=== PATIENT | female | born 1975 | race Two or more races ===

== ENCOUNTER 2017-08-22 09:38 | Emergency (ER) | payer SELFPAY ==
[~2017-08-22] VITALS: Ht 154.9 cm; Wt 47.6 kg
--- NOTE | 2017-08-22 09:43 | PHYS DOC ---
Adult General Chief Complaint Chief Complaint: ABDOMINAL PAIN HPI HPI Patient is a 41 year old female with a history of cholecystectomy on 08/17/17 at [facility] presents to the ED complaining of abdominal pain at incision site x 2 days. Describes the pain as sharp and rates as 6/10. States she was feeling constipated on the toilet this morning and felt a little nauseous with abdominal pain after trying to have a stool. No prior surgeries. Denies fever, vomiting, chest pain, shortness of breath, weakness, headache, syncope. Review of Systems Review of Systems Constitutional: Denies fever or chills [] Eyes: Denies change in visual acuity, redness, or eye pain [] HENT: Denies nasal congestion or sore throat [] Respiratory: Denies cough or shortness of breath [] Cardiovascular: No additional information not addressed in HPI [] GI: Complains of abdominal pain. Denies nausea, vomiting, bloody stools or diarrhea [] : Denies dysuria or hematuria [] Musculoskeletal: Denies back pain or joint pain [] Integument: Denies rash or skin lesions [] Neurologic: Denies headache, focal weakness or sensory changes [] Endocrine: Denies polyuria or polydipsia [] Current Medications Current Medications Current Medications Medications (Trade) Dose Ordered Sig/Soraya Start Time Stop Time Status Last Admin Dose Admin Info (Do NOT chart on this entry -- for MONITORING) 1 each PRN DAILY PRN 08/22/17 11:45 08/22/17 13:35 DC Iohexol (Omnipaque 300 Mg/ml) 75 ml 1X ONCE 08/22/17 12:15 08/22/17 12:16 DC 08/22/17 11:52 75 ML Morphine Sulfate 2 mg 1X ONCE 08/22/17 11:45 08/22/17 11:46 DC 08/22/17 11:41 2 MG Allergies Allergies Allergies Coded Allergies Type Severity Reaction Last Updated Verified No Known Drug Allergies 08/22/17 No Physical Exam Physical Exam Constitutional: Well developed, well nourished, no acute distress, non-toxic appearance. [] HENT: Normocephalic, atraumatic, bilateral external ears normal, oropharynx moist, no oral exudates, nose normal. [] Eyes: PERRLA, EOMI, conjunctiva normal, no discharge. [] Neck: Normal range of motion, no tenderness, supple, no stridor. [] Cardiovascular:Heart rate regular rhythm, no murmur [] Lungs & Thorax: Bilateral breath sounds clear to auscultation [] Abdomen: Bowel sounds normal, soft, MILD TENDERNESS TO INCISION SITE. SUTURES AND STERI STRIPS INTACT. C/D/I. NO SIGNS OF INFECTION DRAINAGE OR DEHISCENCE. no masses, no pulsatile masses. [] Skin: Warm, dry, no erythema, no rash. [] Back: No tenderness, no CVA tenderness. [] Extremities: No tenderness, no cyanosis, no clubbing, ROM intact, no edema. [] Neurologic: Alert and oriented X 3, normal motor function, normal sensory function, no focal deficits noted. [] Psychologic: Affect normal, judgement normal, mood normal. [] Current Patient Data Vital Signs Vital Signs Date Time Temp Pulse Resp B/P (MAP) Pulse Ox O2 Delivery O2 Flow Rate FiO2 08/22/17 13:10 75 16 103/51 (68) 97 Room Air 08/22/17 10:04 98.8 98.8 Lab Values Laboratory Tests Test 08/22/17 09:47 08/22/17 09:50 08/22/17 10:16 Urine Collection Type Void Urine Color Yellow Urine Clarity Clear Urine pH 8.0 Urine Specific [place] 1.010 Urine Protein Negative mg/dL (NEG-TRACE) Urine Glucose (UA) Negative mg/dL (NEG) Urine Ketones (Stick) Negative mg/dL (NEG) Urine Blood Negative (NEG) Urine Nitrite Negative (NEG) Urine Bilirubin Negative (NEG) Urine Urobilinogen Dipstick 1.0 mg/dL (0.2 mg/dL) Urine Leukocyte Esterase Moderate (NEG) Urine RBC 0 /HPF (0-2) Urine WBC 11-20 /HPF (0-4) Urine Squamous Epithelial Cells Occ /LPF Urine Bacteria Few /HPF (0-FEW) Urine Mucus Mod /LPF POC Urine HCG, Qualitative Hcg negative (Negative) White Blood Count 6.8 x10^3/uL (4.0-11.0) Red Blood Count 3.74 x10^6/uL (3.50-5.40) Hemoglobin 10.7 g/dL (12.0-15.5) L Hematocrit 32.3 % (36.0-47.0) L Mean Corpuscular Volume 86 fL (79-100) Mean Corpuscular Hemoglobin 29 pg (25-35) Mean Corpuscular Hemoglobin Concent 33 g/dL (31-37) Red Cell Distribution Width 16.5 % (11.5-14.5) H Platelet Count 235 x10^3/uL (140-400) Sodium Level 138 mmol/L (136-145) Potassium Level 3.9 mmol/L (3.5-5.1) Chloride Level 103 mmol/L (98-107) Carbon Dioxide Level 28 mmol/L (21-32) Anion Gap 7 (6-14) Blood Urea Nitrogen 10 mg/dL (7-20) Creatinine 0.7 mg/dL (0.6-1.0) Estimated GFR (Cockcroft-Gault) 91.8 BUN/Creatinine Ratio 14 (6-20) Glucose Level 112 mg/dL (70-99) H Calcium Level 9.0 mg/dL (8.5-10.1) Total Bilirubin 0.4 mg/dL (0.2-1.0) Aspartate Amino Transferase (AST) 39 U/L (15-37) H Alanine Aminotransferase (ALT) 135 U/L (14-59) H Alkaline Phosphatase 150 U/L (46-116) H Total Protein 8.0 g/dL (6.4-8.2) Albumin 3.4 g/dL (3.4-5.0) Albumin/Globulin Ratio 0.7 (1.0-1.7) L Laboratory Tests 08/22/17 10:16 Laboratory Tests 08/22/17 10:16 EKG EKG [] Radiology/Procedures Radiology/Procedures PROCEDURE: CT ABD PELV W/ IV CONTRST ONLY CT of the abdomen and pelvis with contrast, 08/22/2017: History: Postcholecystectomy abdominal pain with abnormal ultrasound Multidetector CT imaging was performed following an IV bolus injection of iodinated contrast material. There is minimal atelectasis in the posterior lung base on the right. There has been a recent cholecystectomy. A small amount of free air within the abdomen and streaky gas collections within the anterolateral abdominal/pelvic wall on the right are presumably on a postsurgical basis. There is an elongated fluid collection in the gallbladder fossa region extending inferiorly. It measures approximately 2.5 cm in width and 7 cm in length. It contains several small air bubbles. There is mild streaky increased density in the adjacent fat inferiorly. No hepatic mass is identified. The central intrahepatic bile ducts are only slightly prominent. No pancreatic abnormality is detected. The spleen is of normal size. No renal abnormality is detected. The abdominal aorta is unremarkable. No abdominal or pelvic adenopathy is seen. The uterus is unremarkable. No bowel dilatation is evident. There is a small collection of medium density material in the right paracolic gutter along the lateral aspect of the descending colon, probably a small hematoma. This measures approximately 11 mm in width and 25 mm in craniocaudad extent. IMPRESSION: 1. Postoperative fluid collection in the gallbladder fossa containing several air bubbles as described above. This may be a postoperative seroma, however, a biloma or abscess cannot be excluded. 2. Small medium density process in the right paracolic gutter which is most likely small hematoma. 3. Gas bubbles in the right anterior abdominal/pelvic wall and a small pneumoperitoneum, presumably on a postoperative basis. PQRS Compliance Statement: One or more of the following individualized dose reduction techniques were utilized for this examination: 1. Automated exposure control 2. Adjustment of the mA and/or kV according to patient size 3. Use of iterative reconstruction technique[] Course & Med Decision Making Course & Med Decision Making Pertinent Labs and Imaging studies reviewed. (See chart for details) []Discussed labs and imaging with patient. Patient's pain improved. Vital stable , no acute distress. On reexamination, abdomen is soft nontender nondistended. No peritoneal signs. Imaging shows postoperative changes. With patients exam, labs and imaging; Patient will be discharged to follow-up outpatient. Discussed follow-up with patient surgeon in the next week. States she has an appointment on August 27. Provided contact information and education. Discussed reasons to return to the ED. Patient understands and agrees with plan. Language line used in order to interpret with patient and family Dragon Disclaimer Dragon Disclaimer This electronic medical record was generated, in whole or in part, using a voice recognition dictation system. Departure Departure Impression: Primary Impression: Postoperative abdominal pain Disposition: HOME, SELF-CARE Condition: IMPROVED Referrals: CIELO INFANTE MD Patient Instructions: Abdominal Pain, Abdominal Surgery, Problems After ROSSY NICHOLSON Aug 22, 2017 09:43
[2017-08-22 10:09] LABS: BILIRUBIN,URINE NEGATIVE (NEG); GLUCOSE,URINE NEGATIVE (NEG); NITRITE,URINE NEGATIVE (NEG); PROTEIN,URINE NEGATIVE (NEG-TRACE)
[2017-08-22 10:19] LABS: BACTERIA,URINE FEW /HPF (0-FEW); RBC,URINE 0 /HPF (0-2); SQUAMOUS EPITHELIAL CELL,UR OCC /LPF
[2017-08-22 10:23] LABS: HEMATOCRIT 32.3 % (36.0-47.0); HEMOGLOBIN 10.7 g/dL (12.0-15.5); RED BLOOD COUNT 3.74 x10^6/uL (3.50-5.40); RED CELL DISTRIBUTION WIDTH 16.5 % (11.5-14.5); WHITE BLOOD COUNT 6.8 x10^3/uL (4.0-11.0)
[2017-08-22 10:31] LABS: CREATININE 0.7 mg/dL (0.6-1.0); GFR 91.8; POTASSIUM 3.9 mmol/L (3.5-5.1)
[2017-08-22 10:37] LABS: ALBUMIN 3.4 g/dL (3.4-5.0); ALBUMIN/GLOBULIN RATIO 0.7 (1.0-1.7); TOTAL BILIRUBIN 0.4 mg/dL (0.2-1.0)
--- NOTE | 2017-08-22 10:49 | RAD ---
Ultrasound abdomen Indication: Status post cholecystectomy on 08/17/2017. Abdominal pain at incision site. Technique: Grayscale and color Doppler ultrasound images of the abdomen obtained. Comparison: None Findings: No abnormal fluid collection or inflammatory phlegmon at the incision site. The visualized pancreas is within normal limits. Pancreatic tail not visualized due to bowel gas. The IVC is patent. The proximal, middle and distal aorta measures 1.4 cm, 1.4 cm and 1.3 cm respectively without evidence of aneurysmal dilation. The liver measures 14 cm in craniocaudal dimension and is normal in echogenicity without focal lesion. Status post cholecystectomy. There is multiple echogenic foci seen in the gallbladder fossa with loculated fluid collection. The CBD measures 3 mm and is within normal limits. The right kidney measures 13 cm in length without hydronephrosis. The spleen measures 10 centimeters and is within normal limits. The left kidney measures 11 cm in length without hydronephrosis. Impression: 1. Status post cholecystectomy. Small amount of complex fluid in the gallbladder fossa may represent postsurgical changes with seroma. Follow-up abdominal CT with IV contrast recommended if clinically indicated. 2. No abnormal fluid collection at the incision site to suggest abscess.
[2017-08-22] MEDS ORDERED: MORPHINE SULFATE 4 MG/ML DISP.SYRIN. IV ONE (11:45)
[2017-08-22] MEDS ORDERED: CONTRAST GIVEN MC PRN (11:45)
[2017-08-22] MEDS ORDERED: IOHEXOL 300 MG/ML 75 ML VIAL IV ONE (12:15)
--- NOTE | 2017-08-22 12:53 | RAD ---
CT of the abdomen and pelvis with contrast, 08/22/2017: History: Postcholecystectomy abdominal pain with abnormal ultrasound Multidetector CT imaging was performed following an IV bolus injection of iodinated contrast material. There is minimal atelectasis in the posterior lung base on the right. There has been a recent cholecystectomy. A small amount of free air within the abdomen and streaky gas collections within the anterolateral abdominal/pelvic wall on the right are presumably on a postsurgical basis. There is an elongated fluid collection in the gallbladder fossa region extending inferiorly. It measures approximately 2.5 cm in width and 7 cm in length. It contains several small air bubbles. There is mild streaky increased density in the adjacent fat inferiorly. No hepatic mass is identified. The central intrahepatic bile ducts are only slightly prominent. No pancreatic abnormality is detected. The spleen is of normal size. No renal abnormality is detected. The abdominal aorta is unremarkable. No abdominal or pelvic adenopathy is seen. The uterus is unremarkable. No bowel dilatation is evident. There is a small collection of medium density material in the right paracolic gutter along the lateral aspect of the descending colon, probably a small hematoma. This measures approximately 11 mm in width and 25 mm in craniocaudad extent. IMPRESSION: 1. Postoperative fluid collection in the gallbladder fossa containing several air bubbles as described above. This may be a postoperative seroma, however, a biloma or abscess cannot be excluded. 2. Small medium density process in the right paracolic gutter which is most likely small hematoma. 3. Gas bubbles in the right anterior abdominal/pelvic wall and a small pneumoperitoneum, presumably on a postoperative basis. PQRS Compliance Statement: One or more of the following individualized dose reduction techniques were utilized for this examination: 1. Automated exposure control 2. Adjustment of the mA and/or kV according to patient size 3. Use of iterative reconstruction technique
[2017-08-22 13:10] VITALS: BP 103/51
== END 2017-08-22 13:35 | disposition home or self-care (01) ==
LOC: ER 09:38
DX: G89.18 Other acute postprocedural pain (principal); R10.9 Unspecified abdominal pain; Z90.49 Acquired absence of other specified parts of digestive tract
CPT/HCPCS: 36415; 74177; 76700; 80053; 81001; 81025; 85027; 96374; 99285; J2270; Q9967